=== PATIENT | female | born 1955 | race Caucasian/White ===

== ENCOUNTER 2017-08-25 18:45 | Emergency (ER) | payer BC, OTHER ==
[2017-08-25 19:03] VITALS: BP 136/75
[2017-08-25 20:09] LABS: CHLORIDE,CL 108 mmol/L (98-107); SODIUM,NA 144 mmol/L (136-145)
--- NOTE | 2017-08-25 21:54 | EDM.PDOC ---
ED HPI GENERAL MEDICAL PROBLEM - General Chief Complaint: HOME HEALTH LVN Problem Stated Complaint: ER Time Seen by Provider: 08/25/17 18:55 Source of Information: Reports: Patient, RN, RN Notes Reviewed History Limitations: Reports: No Limitations - History of Present Illness INITIAL COMMENTS - FREE TEXT/NARRATIVE: Patient presents to the ED at [facility] for vaginal bleeding that started earlier this morning. Patient denies any risk for STD. No UTI symptoms. Patient states that she has felt cold, weak, lightheaded. The patient states that movement makes her pain worse. The patient states that movement also increases the vaginal bleeding. The patient states that the blood is very bright and clotty. The patient denies any recent catheter use. The patient states that she has not had intercourse in over 17 years. The patient states that she started having vaginal bleeding after intercourse this morning. The patient states that the intercourse is very painful. Onset: Today, Sudden Onset Date: 08/25/17 Duration: Constant - Related Data Allergies Allergy/AdvReac Type Severity Reaction Status Date / Time Penicillins Allergy Cannot Verified 08/25/17 18:53 Remember Home Meds: Home Meds ALPRAZolam [Xanax] 2.5 mg PO BID PRN 06/18/14 [History] Ascorbic Acid [C-1000] 1 tab PO DAILY 06/18/14 [History] Calcium Carbonate [Calcium] 600 mg PO BID 06/18/14 [History] Citalopram Hydrobromide [Celexa] 10 mg PO DAILY 06/18/14 [History] Folic Acid 0.4 mg PO DAILY 06/18/14 [History] Levothyroxine 112 mcg PO DAILY 06/18/14 [History] Multivitamin [Multi Vitamin Daily] 1 tab PO DAILY 06/18/14 [History] Naproxen Sodium [Aleve] 1 cap PO DAILY PRN 06/18/14 [History] Vitamin B Complex 1 cap PO DAILY 06/18/14 [History] Loratadine [Claritin] 10 mg PO DAILY 11/08/14 [History] Past Medical History Psychiatric History: Reports: Anxiety Endocrine/Metabolic History: Reports: Hypothyroidism Social & Family History - Tobacco Use Smoking Status *Q: Unknown Ever Smoked Years of Tobacco use: 40 Used Tobacco, but Quit: Yes Second Hand Smoke Exposure: Yes - Alcohol Use Days Per Week of Alcohol Use: 7 Number of Drinks Per Day: 6 Total Drinks Per Week: 42 - Recreational Drug Use Recreational Drug Use: No Drug Use in Last 12 Months: No ED ROS GENERAL - Review of Systems Review Of Systems: See Below Constitutional: Reports: Chills, Weakness. Denies: Fever Respiratory: Denies: Shortness of Breath, Cough Cardiovascular: Reports: Lightheadedness. Denies: Chest Pain, Palpitations GI/Abdominal: Denies: Abdominal Pain, Nausea, Vomiting : Reports: Hematuria, Pain Skin: Reports: No Symptoms Neurological: Reports: No Symptoms ED EXAM, RENAL/ - Physical Exam Exam: See Below Exam Limited By: No Limitations General Appearance: Alert, No Apparent Distress Respiratory/Chest: No Respiratory Distress, Lungs Clear, Normal Breath Sounds Cardiovascular: Normal Peripheral Pulses, Regular Rate, Rhythm (Female) Exam: Vaginal Bleeding Neurological: Alert, Oriented Skin Exam: Warm, Dry, Intact, Normal Color, No Rash ED PROCEDURES - Additional/Other Procedure(s) Procedure(s) (Free Text): Vaginal exam completed. The vaginal canal was extensively evacuated for significant blood clotting. The patient has a vaginal tear from the mid vaginal canal extending all the way to the cervix. This area is actively bleeding. Tamponade was tried with 4 x 4's for several minutes without any relief of the bleeding. Patient tolerated procedure well and no complications. Course - Vital Signs Last Recorded V/S: Last Vital Signs Temp 36.6 C 08/25/17 18:45 Pulse 100 08/25/17 18:45 Resp 16 08/25/17 18:45 BP 136/75 08/25/17 18:45 Pulse Ox 92 L 08/25/17 18:45 - Orders/Labs/Meds Labs: Laboratory Tests 08/25/17 08/25/17 08/25/17 Range/Units 19:40 19:40 21:39 WBC 10.8 H (4.0-10.0) x10^3/uL RBC 3.60 L (4.00-5.50) x10^6/uL Hgb 12.3 (12.0-16.0) g/dL Hct 36.9 (33.0-47.0) % MCV 102.5 H D (78.0-93.0) fL MCH 34.2 H (26.0-32.0) pg MCHC 33.3 (32.0-36.0) g/dL RDW Coeff of [place] 12.5 (10.0-15.0) % Plt Count 294 (130-400) x10^3/uL Neut % (Auto) 77.5 (50.0-80.0) % Lymph % (Auto) 13.0 L (25.0-50.0) % [place] % (Auto) 8.4 (2.0-11.0) % Eos % (Auto) 0.7 (0.0-4.0) % Baso % (Auto) 0.4 (0.2-1.2) % Sodium 144 (136-145) mmol/L Potassium 3.6 (3.5-5.1) mmol/L Chloride 108 H (98-107) mmol/L Carbon Dioxide 24 (21-32) mmol/L BUN 10 (7-18) mg/dL Creatinine 0.6 (0.55-1.02) mg/dL Est Cr Clr Drug Dosing TNP Estimated GFR (MDRD) > 60 Glucose 92 (74-106) mg/dL Calcium 8.5 (8.5-10.1) mg/dL Urine Color Red H (YELLOW) Urine Appearance Other H (CLEAR) Urine pH 6.5 (5.0-8.0) Ur Specific [place] 1.020 Urine Protein >=300 H (NEGATIVE) mg/dL Urine Glucose (UA) Negative (NEGATIVE) mg/dL Urine Ketones Negative (NEGATIVE) mg/dL Urine Occult Blood Large H (NEGATIVE) Urine Nitrite Negative (NEGATIVE) Urine Bilirubin Negative (NEGATIVE) Urine Urobilinogen 0.2 (0.2) EU/dL Ur Leukocyte Esterase Small H (NEGATIVE) Urine RBC Packed (NOT SEEN) /HPF Urine WBC 10-20 H (NOT SEEN) /HPF Ur Squamous Epith Cells Few H (NEGATIVE) /HPF Urine Bacteria Moderate H (NEGATIVE) /HPF Urine Mucus Not seen (NEGATIVE) /LPF Departure - Departure Time of Disposition: 22:51 Disposition: DC/Tfer to Acute Hospital 02 Condition: Good Clinical Impression: Dyspareunia in female, Vaginal bleeding Tear of vaginal muscle Qualifiers: Encounter type: initial encounter Qualified Code(s): S39.013A - Strain of muscle, fascia and tendon of pelvis, initial encounter - Discharge Information Forms[facility] - ED Communication Date/Time Date: 08/25/17 Time Called: 21:45 - Discussed Case With (1) Discussed Case With (1): Outpatient Provider (Dr. Scott, HOME HEALTH LVN) Person/s Notified (1): Ha Scott - Conversation Summary Outpatient Provider Agreed to Follow-up on this Patient: Yes Patient Aware of Amendments fo Care Plan: Yes - Problem List Review Problem List Initiated/Reviewed/Updated: Yes - Assessment/Plan Plan: Case was discussed with Dr. Scott. Vaginal exam was discussed and patient will need to be sent to [facility] emergency department for the repair of the vaginal tear. Patient is aware and wishes to proceed. The patient will be sent via private vehicle. All questions answered.
== END 2017-08-25 23:27 | disposition short-term general hospital (02) ==
LOC: VM.ED 18:45
DX: S39.013A Strain of muscle, fascia and tendon of pelvis, initial encounter (principal); N94.10 Unspecified dyspareunia; E03.9 Hypothyroidism, unspecified; F41.9 Anxiety disorder, unspecified; Z79.899 Other long term (current) drug therapy; Z88.0 Allergy status to penicillin; X58.XXXA Exposure to other specified factors, initial encounter
CPT/HCPCS: 36415; 80048; 81001; 85025; 87210; 99285

== ENCOUNTER 2018-01-17 14:39 | Emergency (ER) | payer OTHER, BC ==
--- NOTE | 2018-01-17 14:52 | EDM.PDOC ---
ED HPI GENERAL MEDICAL PROBLEM - General Chief Complaint: Upper Extremity Injury/Pain Stated Complaint: fall at work, hurt left elbow Time Seen by Provider: 01/17/18 14:40 Source of Information: Reports: Patient History Limitations: Reports: No Limitations - History of Present Illness INITIAL COMMENTS - FREE TEXT/NARRATIVE: Patient works at [employer] and fell on a wet floor there. She states it was not marked wet. Hit her left elbow on the floor. Denies injury to any other sites. No LOC, did not hit her head. She does not take any anticoagulants. She has a large visible effusion to the left elbow. Full range of motion. Onset: Today, Sudden Location: Reports: Upper Extremity, Left Severity: Moderate Improves with: Reports: Cold Therapy Associated Symptoms: Reports: No Other Symptoms Left Elbow Pain Score (Numeric/FACES): 8 - Related Data Allergies Allergy/AdvReac Type Severity Reaction Status Date / Time Penicillins Allergy Cannot Verified 01/17/18 15:38 Remember Home Meds: Home Meds ALPRAZolam [Xanax] 2.5 mg PO BID PRN 06/18/14 [History] Ascorbic Acid [C-1000] 1 tab PO DAILY 06/18/14 [History] Calcium Carbonate [Calcium] 600 mg PO BID 06/18/14 [History] Citalopram Hydrobromide [Celexa] 10 mg PO DAILY 06/18/14 [History] Folic Acid 0.4 mg PO DAILY 06/18/14 [History] Levothyroxine 112 mcg PO DAILY 06/18/14 [History] Multivitamin [Multi Vitamin Daily] 1 tab PO DAILY 06/18/14 [History] Naproxen Sodium [Aleve] 1 cap PO DAILY PRN 06/18/14 [History] Vitamin B Complex 1 cap PO DAILY 06/18/14 [History] Loratadine [Claritin] 10 mg PO DAILY 11/08/14 [History] Past Medical History Psychiatric History: Reports: Anxiety Endocrine/Metabolic History: Reports: Hypothyroidism Review of Systems - Review of Systems Review Of Systems: See Below Constitutional: Reports: No Symptoms Eyes: Reports: No Symptoms Ears: Reports: No Symptoms Nose: Reports: No Symptoms Mouth/Throat: Reports: No Symptoms Respiratory: Reports: No Symptoms Cardiovascular: Reports: No Symptoms GI/Abdominal: Reports: No Symptoms Genitourinary: Reports: No Symptoms Musculoskeletal: Reports: Arm Pain (left elbow pain) Skin: Reports: No Symptoms Neurological: Reports: No Symptoms Psychiatric: Reports: No Symptoms ED EXAM, GENERAL - Physical Exam Exam: See Below Exam Limited By: No Limitations General Appearance: Alert, WD/WN, No Apparent Distress Eye Exam: Bilateral Eye: EOMI, PERRL Respiratory/Chest: No Respiratory Distress, Lungs Clear, Normal Breath Sounds, No Accessory Muscle Use, Chest Non-Tender Cardiovascular: Normal Peripheral Pulses, Regular Rate, Rhythm, No Edema, No Gallop, No JVD, No Murmur, No Rub Peripheral Pulses: 2+: Radial (L), Radial (R) GI/Abdominal: Normal Bowel Sounds, Soft Extremities: Normal Range of Motion (left elbow is painful and slow, but full ROM is intact), Normal Capillary Refill Neurological: Alert, Oriented, CN II-XII Intact, Normal Cognition, Normal Gait, Normal Reflexes, No Motor/Sensory Deficits Psychiatric: Normal Affect, Normal Mood Skin Exam: Ecchymosis (left elbow) Course - Vital Signs Last Recorded V/S: Last Vital Signs Temp 37.2 C 01/17/18 14:45 Pulse 81 01/17/18 14:45 Resp 16 01/17/18 14:45 BP 156/78 H 01/17/18 14:45 Pulse Ox 96 01/17/18 14:45 - Orders/Labs/Meds Orders: Active Orders 24 hr Category Date Time Status Branden Bandage [RC] ONETIME Care 01/17/18 15:02 Active Immobilizer [RC] ASDIRECTED Care 01/17/18 15:02 Active Elbow 2V Lt [CR] Stat Exams 01/17/18 14:40 Taken Meds: Medications Discontinued Medications Generic Name Dose Route Start Last Admin Trade Name Joselitoq PRN Reason Stop Dose Admin Tramadol HCl 50 mg 01/17/18 14:53 01/17/18 15:04 Ultram PO 01/17/18 14:54 50 mg ONETIME ONE Administration Departure - Departure Time of Disposition: 15:15 Disposition: Home, Self-Care 01 Condition: Good Clinical Impression: Fracture of olecranon process of left ulna Qualifiers: Encounter type: initial encounter Fracture type: closed Qualified Code(s): S52.022A - Displaced fracture of olecranon process without intraarticular extension of left ulna, initial encounter for closed fracture - Discharge Information Instructions: Olecranon Fracture Forms: ED Department Discharge Additional Instructions: Keep your elbow elevated, use ice and keep compressed for swelling. Take 50-100 mg of the tramadol I prescribed as needed for pain. Follow up with your primary and orthopedic for additional treatment and any surgery that may be needed. Please call us if your pain is not controlled or you have any problems with your blood flow and circulation to the hand. Please call with any questions or concerns. - Problem List & Annotations (1) Fracture of olecranon process of left ulna SNOMED Code(s): 883835001 Code(s): S52.022A - DISP FX OF OLECRAN PRO W/O INTARTIC EXTN LEFT ULNA, INIT Status: Acute Priority: Low Qualifiers: Encounter type: initial encounter Fracture type: closed Qualified Code(s) : S52.022A - Displaced fracture of olecranon process without intraarticular extension of left ulna, initial encounter for closed fracture - Problem List Review Problem List Initiated/Reviewed/Updated: Yes - My Orders Last 24 Hours: My Active Orders 01/17/18 14:40 Elbow 2V Lt [CR] Stat 01/17/18 15:02 Branden Bandage [RC] ONETIME Immobilizer [RC] ASDIRECTED - Assessment/Plan Last 24 Hours: My Active Orders 01/17/18 14:40 Elbow 2V Lt [CR] Stat 01/17/18 15:02 Branden Bandage [RC] ONETIME Immobilizer [RC] ASDIRECTED Assessment:: Fracture of left olecranon of ulna - non displaced Plan: Keep your elbow elevated, use ice and keep compressed for swelling. Take 50-100 mg of the tramadol I prescribed as needed for pain. Follow up with your primary and orthopedic for additional treatment and any surgery that may be needed. Please call us if your pain is not controlled or you have any problems with your blood flow and circulation to the hand. Please call with any questions or concerns.
[2018-01-17] MEDS: traMADol 50 MG Tab PO ONE (15:04)
[2018-01-17 15:38] VITALS: BP 156/78
== END 2018-01-17 15:15 | disposition home or self-care (01) ==
LOC: VM.ED 14:39
DX: S52.022A Displaced fracture of olecranon process without intraarticular extension of left ulna, initial encounter for closed fracture (principal); E03.9 Hypothyroidism, unspecified; Z88.0 Allergy status to penicillin; Z79.899 Other long term (current) drug therapy; W19.XXXA Unspecified fall, initial encounter
CPT/HCPCS: 73070; 99283; A9270

== ENCOUNTER 2018-09-14 16:31 | Emergency (ER) | payer BC, OTHER ==
[2018-09-14 16:40] VITALS: BP 108/57
--- NOTE | 2018-09-14 16:43 | EDM.PDOC ---
ED HPI GENERAL MEDICAL PROBLEM - General Chief Complaint: Upper Extremity Injury/Pain Time Seen by Provider: 09/14/18 16:36 Source of Information: Reports: Patient, Family - History of Present Illness INITIAL COMMENTS - FREE TEXT/NARRATIVE: I did talk to Dr. Wheeler about 10 after 5. The patient has been nothing by mouth since 3:00. We were able to do 2 view x-rays. Because the nothing by mouth status has been too soon surgery cannot happen tonight and the surgeon is booked up for the next couple days but he will inquire and get one of his partners either Dr. Galeano or Dr. Jordan to do the surgery. The patient was given a immobilizer and she declined any pain medications. She will be sleeping in a recliner. She will try ice and Aleve and she will not move her arm. Duration: Getting Worse Quality: Reports: Sharp Improves with: Reports: None Worsens with: Reports: Movement Context: Reports: Trauma Associated Symptoms: Reports: No Other Symptoms Right Shoulder Pain Score (Numeric/FACES): 10 - Related Data Allergies Allergy/AdvReac Type Severity Reaction Status Date / Time Penicillins Allergy Cannot Verified 01/17/18 15:38 Remember Home Meds: Home Meds ALPRAZolam [Xanax] 2.5 mg PO BID PRN 06/18/14 [History] Ascorbic Acid [C-1000] 1 tab PO DAILY 06/18/14 [History] Calcium Carbonate [Calcium] 600 mg PO BID 06/18/14 [History] Citalopram Hydrobromide [Celexa] 10 mg PO DAILY 06/18/14 [History] Folic Acid 0.4 mg PO DAILY 06/18/14 [History] Levothyroxine 112 mcg PO DAILY 06/18/14 [History] Multivitamin [Multi Vitamin Daily] 1 tab PO DAILY 06/18/14 [History] Naproxen Sodium [Aleve] 1 cap PO DAILY PRN 06/18/14 [History] Vitamin B Complex 1 cap PO DAILY 06/18/14 [History] Loratadine [Claritin] 10 mg PO DAILY 11/08/14 [History] Past Medical History Psychiatric History: Reports: Anxiety Endocrine/Metabolic History: Reports: Hypothyroidism Social & Family History - Tobacco Use Smoking Status *Q: Current Every Day Smoker Review of Systems - Review of Systems Review Of Systems: ROS reveals no pertinent complaints other than HPI. ED EXAM, GENERAL - Physical Exam Exam: See Below Exam Limited By: No Limitations General Appearance: Alert Respiratory/Chest: No Respiratory Distress, Lungs Clear, Normal Breath Sounds, No Accessory Muscle Use, Chest Non-Tender Cardiovascular: Normal Peripheral Pulses, Regular Rate, Rhythm, No Edema, No Gallop, No JVD, No Murmur, No Rub Extremities: Other (She does have a mass defect. This is consistent with a fracture. Neurovascularly she is intact distally. Good capillary refill. Range of motion is not tested. She is unable to move her arm without a great deal discomfort and pain. She is holding her arm to her side.) Course - Vital Signs Last Recorded V/S: Last Vital Signs Temp 36.3 C 09/14/18 16:35 Pulse 72 09/14/18 16:35 Resp 20 09/14/18 16:35 BP 108/57 L 09/14/18 16:35 Pulse Ox 93 L 09/14/18 16:35 Departure - Departure Time of Disposition: 17:25 Disposition: Home, Self-Care 01 Condition: Fair Clinical Impression: Humeral surgical neck fracture Qualifiers: Encounter type: initial encounter Fracture type: closed Fracture morphology: unspecified fracture morphology Fracture alignment: displaced Laterality: right Qualified Code(s): S42.211A - Unspecified displaced fracture of surgical neck of right humerus, initial encounter for closed fracture - Discharge Information *PRESCRIPTION DRUG MONITORING PROGRAM REVIEWED*: Not Applicable *COPY OF PRESCRIPTION DRUG MONITORING REPORT IN PATIENT ANNA: Not Applicable Instructions: Radial Head Fracture, [id number] Referrals: Jenni Santiago MD [Primary Care Provider] - Forms: ED Department Discharge Additional Instructions: Dr. Galeano or Dr. Jordan may be doing surgery for you either Saturday or Saturday. You may have to sleep in a recliner. Ice may help. Immobilizer placed. They will be calling you for your surgical time. Do not eat breakfast tomorrow until you hear from them.
--- NOTE | 2018-09-14 17:19 | CR ---
[id number] RAD/RAD Shoulder Right 2V Min EXAM: RAD Shoulder Right 2V Min CLINICAL DATA: TRAUMA COMPARISON: NO PREVIOUS SIMILAR EXAM IS AVAILABLE. FINDINGS: A complex proximal right humeral neck fracture is seen with anterior displacement of the distal fracture fragment, overriding of fracture fragments, evidence of comminution, and question of an underlying lytic process. There are degenerative changes of the right acromioclavicular joint.. IMPRESSION: COMPLEX DISPLACED OVERRIDING RIGHT HUMERAL NECK FRACTURE. QUESTION OF UNDERLYING LYTIC PROCESS. Sajan Almanzar MD 09/14/18 [id number] Thank you for allowing us to participate in the care of your patient.
== END 2018-09-14 17:40 | disposition home or self-care (01) ==
LOC: VM.ED 16:31
DX: S42.211A Unspecified displaced fracture of surgical neck of right humerus, initial encounter for closed fracture (principal); Z88.0 Allergy status to penicillin; F17.210 Nicotine dependence, cigarettes, uncomplicated; F41.9 Anxiety disorder, unspecified; W00.0XXA Fall on same level due to ice and snow, initial encounter
CPT/HCPCS: 73030-RT; 99283

== ENCOUNTER 2021-07-26 15:33 | Inpatient (IN) | payer MEDICARE, OTHER ==
[2021-07-26] MEDS ORDERED: Sodium Chloride 0.9% 10 ML Syringe FLUSH PRN (15:54)
[2021-07-26] MEDS ORDERED: Ondansetron 4 MG/2 ML SDV IVPUSH ONE (15:56)
[2021-07-26] MEDS ORDERED: Sodium Chloride 0.9% 1,000 ML IV ONE (15:56)
[2021-07-26] MEDS ORDERED: Pantoprazole 40 MG Vial IVPUSH ONE (15:56)
--- NOTE | 2021-07-26 16:16 | EDM.PDOC ---
ED HPI GENERAL MEDICAL PROBLEM - General Chief Complaint: Gastrointestinal Problem Stated Complaint: COVID SYMPTOMS Time Seen by Provider: 07/26/21 15:54 Source of Information: Reports: Patient History Limitations: Reports: No Limitations - History of Present Illness INITIAL COMMENTS - FREE TEXT/NARRATIVE: Patient presents to the Ed for cough, body aches, headache, loss of appetite for the last 4 days. She has had her covid booster in [facility]. SHe is a regular drinker of a large amount of alcohol daily but has not since three days ago. She is feeling lightheaded, dizzy, passing out for several days and since yesterday has had black tar like stools. epigastric pain. In may was taking a large amount of NSAIDS, but stopped doing that. She is a smoker Onset Date: 07/22/21 Duration: Getting Worse - Related Data Allergies Allergy/AdvReac Type Severity Reaction Status Date / Time Penicillins Allergy Cannot Verified 07/26/21 16:14 Remember Home Meds: Home Meds ALPRAZolam [Xanax] 2.5 mg PO BID PRN 06/18/14 [History] Ascorbic Acid [C-1000] 1 tab PO DAILY 06/18/14 [History] Calcium Carbonate [Calcium] 600 mg PO BID 06/18/14 [History] Citalopram Hydrobromide [Celexa] 10 mg PO DAILY 06/18/14 [History] Folic Acid 0.4 mg PO DAILY 06/18/14 [History] Levothyroxine 112 mcg PO DAILY 06/18/14 [History] Multivitamin [Multi Vitamin Daily] 1 tab PO DAILY 06/18/14 [History] Naproxen Sodium [Aleve] 1 cap PO DAILY PRN 06/18/14 [History] Vitamin B Complex 1 cap PO DAILY 06/18/14 [History] Loratadine [Claritin] 10 mg PO DAILY 11/08/14 [History] Past Medical History Psychiatric History: Reports: Anxiety Endocrine/Metabolic History: Reports: Hypothyroidism Social & Family History - Family History Family Medical History: No Pertinent Family History - Tobacco Use Tobacco Use Status *Q: Current Every Day Tobacco User - Alcohol Use Alcohol Use History: Yes Alcohol Use Frequency: Daily ED ROS GENERAL - Review of Systems Review Of Systems: See Below Constitutional: Reports: Malaise, Weakness, Fatigue, Decreased Appetite HEENT: Reports: Rhinitis. Denies: Sinus Problem, Throat Pain, Throat Swelling Respiratory: Reports: Shortness of Breath, Cough Cardiovascular: Reports: Dyspnea on Exertion. Denies: Chest Pain, Blood Pressure Problem Endocrine: Reports: Fatigue GI/Abdominal: Reports: Anorexia, Black Stool, Diarrhea, Decreased Appetite, Nausea Musculoskeletal: Reports: Muscle Pain Skin: Reports: No Symptoms Neurological: Reports: Dizziness, Headache, Numbness, Syncope (or near syncope) ED EXAM, GENERAL - Physical Exam Exam: See Below Exam Limited By: No Limitations General Appearance: Alert, Cachetic, Other (ill appearing, pale) Eye Exam: Bilateral Eye: EOMI, PERRL, Other (pale conjunctiva) Ears: Normal External Exam, Normal Canal, Hearing Grossly Normal Nose: Normal Inspection, Normal Mucosa, No Blood Throat/Mouth: Normal Inspection, Normal Lips, Other (moderate dry mucous mem branes) Neck: Normal Inspection Respiratory/Chest: No Respiratory Distress, Decreased Breath Sounds, Crackles (bases) Cardiovascular: Regular Rate, Rhythm, Tachycardia GI/Abdominal: Tender (mild epigastric area), Abnormal Bowel Sounds (decreased) Extremities: Normal Inspection, Normal Range of Motion, Non-Tender Neurological: Alert, Oriented #1 Interpretation EKG Date: 07/26/21 Time: 16:26 Rhythm: NSR Rate (Beats/Min): 92 P-Wave: Present ST-T: Other QT: Prolonged (borderline) Course - Vital Signs Last Recorded V/S: Last Vital Signs Temp 36.7 C 07/26/21 16:10 Pulse 101 H 07/26/21 16:10 Resp 18 07/26/21 16:10 BP 103/45 L 07/26/21 16:10 Pulse Ox 2 L 07/26/21 16:20 - Orders/Labs/Meds Orders: Active Orders 24 hr Category Date Time Status Oxygen Therapy [RC] ASDIRECTED Care 07/26/21 16:20 Active BLOOD SMEARS TO PATHOLOGIST [REF] Stat Lab 07/26/21 16:22 Received Oseltamivir [Tamiflu] Med 07/26/21 20:00 Active 75 mg PO BID Sodium Chloride 0.9% [Saline Flush] Med 07/26/21 15:54 Active 10 ml FLUSH ASDIRECTED PRN Peripheral IV Insertion Adult [OM.PC] Routine Oth 07/26/21 15:54 Ordered Medication Orders Oseltamivir Phosphate (Oseltamivir 75 Mg Cap) 75 mg PO BID [facility] Last Admin: 07/26/21 18:32 Dose: 75 mg Documented by: SALAZAR Sodium Chloride (Sodium Chloride 0.9% 10 Ml Syringe) 10 ml FLUSH ASDIRECTED PRN PRN Reason: Keep Vein Open Labs: Laboratory Tests 07/26/21 07/26/21 07/26/21 Range/Units 16:00 16:22 16:22 WBC 8.2 (4.0-10.0) x10^3/uL RBC 3.14 L (4.00-5.50) x10^6/uL Hgb 10.9 L (12.0-16.0) g/dL Hct 31.4 L (33.0-47.0) % MCV 100.0 H (78.0-93.0) fL MCH 34.7 H (26.0-32.0) pg MCHC 34.7 (32.0-36.0) g/dL RDW Coeff of Raafel 12.1 (10.0-15.0) % Plt Count 202 (130-400) x10^3/uL Add Manual Diff Yes Neutrophils % (Manual) 65 (50-80) % Band Neutrophils % 20 H (0-6) % Lymphocytes % (Manual) 3 L (25-50) % Reactive Lymphs % 6 H (0) % Monocytes % (Manual) 1 L (2-11) % Metamyelocytes % 5 H (0) % Immature Gran # 0.41 H (0.00-0.07) X10^3/Ul Absolute Neutrophils 7.0 (1.8-7.7) x10^3/uL Lymphocytes # (Manual) 0.7 L (1.0-4.8) x10^3/uL Monocytes # (Manual) 0.1 (0.0-0.8) x10^3/uL Vacuolated Neuts 2+ moderate Toxic Granulation 2+ moderate H Platelet Estimate Adequate Giant Platelets Rare H Polychromasia Rare Macrocytosis 2+ moderate H D-Dimer, Quantitative (<=0.58) mg/LFEU Sodium 133 L (136-145) mmol/L Potassium 3.9 (3.5-5.1) mmol/L Chloride 98 (98-107) mmol/L Carbon Dioxide 24 (21-32) mmol/L Anion Gap 14.9 (5-15) mmol/L BUN 31 H (7-18) mg/dL Creatinine 0.9 (0.55-1.02) mg/dL Est Cr Clr Drug Dosing TNP Estimated GFR (MDRD) > 60 Glucose 105 H (70-99) mg/dL Lactic Acid (0.4-2.0) mmol/L Calcium 8.6 (8.5-10.1) mg/dL Corrected Calcium 9.3 (8.5-10.1) mg/dL Total Bilirubin 0.5 (0.2-1.0) mg/dL AST 23 (15-37) U/L ALT 18 (14-59) U/L Alkaline Phosphatase 67 (46-116) U/L Ammonia (19-54) ug/dL Troponin I High Sens 9 (<=51) ng/L C-Reactive Protein 25.2 H (<=0.9) mg/dL Total Protein 6.9 (6.4-8.2) g/dL Albumin 3.1 L (3.4-5.0) g/dL Globulin 3.8 Albumin/Globulin Ratio 0.82 Lipase 37 L (73-393) U/L Ethyl Alcohol < 3 (0-3) mg/dL Influenza Type A RNA Positive H (NEGATIVE) RSV RNA (INAAT) Negative (NEGATIVE) Influenza Type B RNA Negative (NEGATIVE) SARS-CoV-2 RNA (SHELBY) Negative (NEGATIVE) 07/26/21 07/26/21 07/26/21 Range/Units 16:22 16:22 16:22 WBC (4.0-10.0) x10^3/uL RBC (4.00-5.50) x10^6/uL Hgb (12.0-16.0) g/dL Hct (33.0-47.0) % MCV (78.0-93.0) fL MCH (26.0-32.0) pg MCHC (32.0-36.0) g/dL RDW Coeff of Rafael (10.0-15.0) % Plt Count (130-400) x10^3/uL Add Manual Diff Neutrophils % (Manual) (50-80) % Band Neutrophils % (0-6) % Lymphocytes % (Manual) (25-50) % Reactive Lymphs % (0) % Monocytes % (Manual) (2-11) % Metamyelocytes % (0) % Immature Gran # (0.00-0.07) X10^3/Ul Absolute Neutrophils (1.8-7.7) x10^3/uL Lymphocytes # (Manual) (1.0-4.8) x10^3/uL Monocytes # (Manual) (0.0-0.8) x10^3/uL Vacuolated Neuts Toxic Granulation Platelet Estimate Giant Platelets Polychromasia Macrocytosis D-Dimer, Quantitative 0.75 H (<=0.58) mg/LFEU Sodium (136-145) mmol/L Potassium (3.5-5.1) mmol/L Chloride (98-107) mmol/L Carbon Dioxide (21-32) mmol/L Anion Gap (5-15) mmol/L BUN (7-18) mg/dL Creatinine (0.55-1.02) mg/dL Est Cr Clr Drug Dosing Estimated GFR (MDRD) Glucose (70-99) mg/dL Lactic Acid 1.5 (0.4-2.0) mmol/L Calcium (8.5-10.1) mg/dL Corrected Calcium (8.5-10.1) mg/dL Total Bilirubin (0.2-1.0) mg/dL AST (15-37) U/L ALT (14-59) U/L Alkaline Phosphatase (46-116) U/L Ammonia < 17 L (19-54) ug/dL Troponin I High Sens (<=51) ng/L C-Reactive Protein (<=0.9) mg/dL Total Protein (6.4-8.2) g/dL Albumin (3.4-5.0) g/dL Globulin Albumin/Globulin Ratio Lipase (73-393) U/L Ethyl Alcohol (0-3) mg/dL Influenza Type A RNA (NEGATIVE) RSV RNA (INAAT) (NEGATIVE) Influenza Type B RNA (NEGATIVE) SARS-CoV-2 RNA (SHELBY) (NEGATIVE) Meds: Medications Generic Name Dose Route Start Last Admin Trade Name Freq PRN Reason Stop Dose Admin Oseltamivir Phosphate 75 mg 07/26/21 20:00 07/26/21 18:32 Oseltamivir 75 Mg Cap PO 75 mg BID VALDO Administration Sodium Chloride 10 ml 07/26/21 15:54 Sodium Chloride 0.9% 10 Ml Syringe FLUSH ASDIRECTED PRN Keep Vein Open Discontinued Medications Generic Name Dose Route Start Last Admin Trade Name Freq PRN Reason Stop Dose Admin Sodium Chloride 1,000 mls @ 999 mls/hr 07/26/21 15:56 07/26/21 16:28 Normal Saline IV 07/26/21 16:56 999 mls/hr ONETIME ONE Administration Iopamidol 50 ml 07/26/21 18:00 07/26/21 18:00 Iopamidol 755 Mg/Ml 100 Ml Bottle IVPUSH 07/26/21 18:01 50 ml ONETIME ONE Administration Ondansetron HCl 4 mg 07/26/21 15:56 07/26/21 16:30 Ondansetron 4 Mg/2 Ml Sdv IVPUSH 07/26/21 15:57 4 mg ONETIME ONE Administration Pantoprazole Sodium 80 mg 07/26/21 15:56 07/26/21 16:32 Pantoprazole 40 Mg Vial IVPUSH 07/26/21 15:57 80 mg ONETIME ONE Administration - Radiology Interpretation Free Text/Narrative:: chest x-rayunilateral distribultioin and appearance most consistent with pneumonia. this is over the left mid and lower lung - Re-Assessments/Exams Free Text/Narrative Re-Assessment/Exam: 07/26/21 16:19 Patient is hypoxic., aleena check for covid/infleunza/rsv. Place on 2.5 lpm nasal canula. type and scree. start IV and give fluids, protonix 80 mg ivp and zofran 07/26/21 18:26 Patient smokes 1 pack per day. drinks daily. advised needed to stay due to hypoxia. Has influenza A. hemoglobin stable. Will need upper and lower GI scope. no stools in the ED. tamiflu given po. 07/26/21 19:12 Dr. Lockwood to Admit for influenza A and acuter respiratory failure. Departure - Departure Time of Disposition: 19:11 Disposition: Admitted As Inpatient 64 Condition: Good Clinical Impression: Influenza A, Acute respiratory failure with hypoxia, Anemia - Discharge Information Referrals: Jenni Santiago MD [Primary Care Provider] - Forms: ED Department Discharge Sepsis Event Note (ED) - Focused Exam Vital Signs: Vital Signs Temp Pulse Resp BP Pulse Ox Pulse Ox 07/26/21 16:20 2 L 07/26/21 16:10 36.7 C 101 H 18 103/45 L 85 L - My Orders Last 24 Hours: My Active Orders 07/26/21 15:54 Sodium Chloride 0.9% [Saline Flush] 10 ml FLUSH ASDIRECTED PRN Peripheral IV Insertion Adult [OM.PC] Routine 07/26/21 16:20 Oxygen Therapy [RC] ASDIRECTED 07/26/21 16:22 BLOOD SMEARS TO PATHOLOGIST [REF] Stat 07/26/21 20:00 Oseltamivir [Tamiflu] 75 mg PO BID - Assessment/Plan Last 24 Hours: My Active Orders 07/26/21 15:54 Sodium Chloride 0.9% [Saline Flush] 10 ml FLUSH ASDIRECTED PRN Peripheral IV Insertion Adult [OM.PC] Routine 07/26/21 16:20 Oxygen Therapy [RC] ASDIRECTED 07/26/21 16:22 BLOOD SMEARS TO PATHOLOGIST [REF] Stat 07/26/21 20:00 Oseltamivir [Tamiflu] 75 mg PO BID
--- NOTE | 2021-07-26 16:52 | CR ---
[id number] RAD/RAD Chest PA And Lateral EXAM: RAD Chest PA And Lateral INDICATION: SHORTNESS OF BREATH. COMPARISON: None. DISCUSSION/IMPRESSION: Cardiomediastinal silhouette is normal in size and contour. Patchy parenchymal opacification projects over the left mid and lower lung. Right lung is clear. Unilateral distribution and appearance of findings is most consistent with pneumonia. No pleural effusion or pneumothorax. Joni Coronado MD 07/26/21 [id number] Thank you for allowing us to participate in the care of your patient.
[2021-07-26 16:53] LABS: CHLORIDE,CL 98 mmol/L (98-107); SODIUM,NA 133 mmol/L (136-145)
[2021-07-26 16:57] LABS: ANION GAP 14.9 mmol/L (5-15)
[2021-07-26 16:58] LABS: CORONAVIRUS COVID-19 NAA NEGATIVE (NEGATIVE); RESPIRATORY SYNCYTIAL VIR NAA NEGATIVE (NEGATIVE)
[2021-07-26] MEDS ORDERED: Iopamidol 755 Mg/ML 100 ML Bottle IVPUSH ONE (18:00)
[2021-07-26] MEDS: Oseltamivir 75 MG Cap PO SCH (18:32)
--- NOTE | 2021-07-26 18:51 | CT ---
[id number] CT/CTA Chest EXAM: CTA Chest CLINICAL DATA: SHORTNESS OF BREATH. COMPARISON STUDY: Radiograph from today. FINDINGS: Lungs: Scattered patchy areas of nonmass-like and geographic appearing parenchymal opacification throughout both lungs. Findings are more prominent on the left. Findings are superimposed on changes of parenchymal emphysema and chronic bronchitis, consistent with changes commonly seen in chronic obstructive pulmonary disease. No pleural effusion or pneumothorax. Mediastinum: No mediastinal or hilar lymphadenopathy. Heart and great vessels: Heart is normal in size. No pericardial effusion. Thoracic aorta is normal in caliber. Pulmonary arteries are normal in caliber. No evidence of embolic material in the main pulmonary arteries or lobar branches. Some of the larger segmental branches are also clear. However and smaller segmental and subsegmental branches are not adequately opacified to assess for emboli. Bones: No acute fracture or compression deformity. Spondylosis. Upper abdomen: Unremarkable. IMPRESSION: Abnormal patchy areas of geographic and somewhat nodular appearing parenchymal opacification in both lungs. Findings are more prominent in the left lung. Appearance and distribution of findings most consistent with pneumonia, including COVID pneumonia. Negative for pulmonary embolus, described above. Joni Coronado MD 07/26/21 [id number] Thank you for allowing us to participate in the care of your patient.
[2021-07-26] MEDS ORDERED: Acetaminophen 325 MG Tab PO PRN (19:53)
[2021-07-26] MEDS ORDERED: Albuterol/Ipratropium 3.0-0.5 MG/3 ML Neb Soln NEB PRN (19:55)
--- NOTE | 2021-07-26 21:39 | PCM.HP.2 ---
H&P History of Present Illness - General Date of Service: 07/26/21 Admit Problem/Dx: Admission Diagnosis/Problem Admission Diagnosis/Problem Acute respiratory failure with hypoxemia Source of Information: Patient History Limitations: Reports: No Limitations - History of Present Illness Initial Comments - Free Text/Narative: Ms. Sewell is a 65 yo female with PMH of COPD, HTN, hypothyroidism, tobacco use disorder, alcohol use disorder, anxiety, and RLS who presented to the ER for evaluation of progressively worsening generalized weakness over the past 5 days. She stated that every time she would get up and move around she felt lightheaded. Today she fell multiple times. When a friend had not heard back from her, she came to check on her and then subsequently brought her to the ER. She has also had a cough that is nonproductive and a mild increase in shortness of breath. She has had headaches, fevers and chills, and decreased appetite. She has been having diarrhea and her stools have now been black over the past 24 hours. No abdominal pain. Last drink was 4 days ago. She has not really been doing any home cares. - Related Data Allergies/Adverse Reactions: Allergies Allergy/AdvReac Type Severity Reaction Status Date / Time Penicillins Allergy Cannot Verified 07/26/21 16:14 Remember Home Medications: Home Meds ALPRAZolam [Xanax] 2.5 mg PO BID PRN 06/18/14 [History] Ascorbic Acid [C-1000] 1 tab PO DAILY 06/18/14 [History] Calcium Carbonate [Calcium] 600 mg PO BID 06/18/14 [History] Citalopram Hydrobromide [Celexa] 10 mg PO DAILY 06/18/14 [History] Folic Acid 0.4 mg PO DAILY 06/18/14 [History] Levothyroxine 112 mcg PO DAILY 06/18/14 [History] Multivitamin [Multi Vitamin Daily] 1 tab PO DAILY 06/18/14 [History] Naproxen Sodium [Aleve] 1 cap PO DAILY PRN 06/18/14 [History] Vitamin B Complex 1 cap PO DAILY 06/18/14 [History] Loratadine [Claritin] 10 mg PO DAILY 11/08/14 [History] Past Medical History HEENT History: Reports: None Cardiovascular History: Reports: High Cholesterol, Hypertension Respiratory History: Reports: COPD Gastrointestinal History: Reports: GERD Genitourinary History: Reports: None Musculoskeletal History: Reports: None Neurological History: Reports: None Psychiatric History: Reports: Anxiety Endocrine/Metabolic History: Reports: Hypothyroidism Hematologic History: Reports: None Immunologic History: Reports: None Oncologic (Cancer) History: Reports: None Dermatologic History: Reports: None - Infectious Disease History Infectious Disease History: Reports: Influenza - Past Surgical History Female Surgical History: Reports: Section, D&C, Tubal Ligation Musculoskeletal Surgical History: Reports: Arthroscopic Procedure, ORIF Social & Family History - Family History Neurological: Reports: Alzheimers Disease - Tobacco Use Tobacco Use Status *Q: Current Every Day Tobacco User Years of Tobacco use: 40 Packs/Tins Daily: 1 - Alcohol Use Alcohol Use History: Yes Days Per Week of Alcohol Use: 7 Number of Drinks Per Day: 4 Total Drinks Per Week: 28 - Recreational Drug Use Recreational Drug Use: No - Living Situation & Occupation Occupation: Employed H&P Review of Systems - Review of Systems: Review Of Systems: See Below General: Reports: Fever, Chills, Malaise HEENT: Reports: Headaches Pulmonary: Reports: Shortness of Breath, Cough Cardiovascular: Reports: No Symptoms Gastrointestinal: Reports: Black Stool, Diarrhea. Denies: Abdominal Pain, Nausea, Vomiting Genitourinary: Reports: No Symptoms Musculoskeletal: Reports: No Symptoms Skin: Reports: No Symptoms Psychiatric: Reports: No Symptoms Neurological: Reports: No Symptoms Hematologic/Lymphatic: Reports: No Symptoms Exam - Exam Exam: See Below - Vital Signs Vital Signs: Last Vital Signs Temp 36.6 C 07/26/21 20:27 Pulse 80 07/26/21 20:27 Resp 18 07/26/21 20:27 BP 104/38 L 07/26/21 20:27 Pulse Ox 95 07/26/21 20:27 - Exam General: Alert, Oriented HEENT: Conjunctiva Clear, Mucosa Moist & [place], Posterior Pharynx Clear, Pupils Equal, Pupils Reactive, TMs Clear Neck: Supple, Trachea Midline Lungs: Clear to Auscultation, Normal Respiratory Effort Cardiovascular: Regular Rate, Regular Rhythm, Normal S1, Normal S2 GI/Abdominal Exam: Normal Bowel Sounds, Soft, Non-Tender, No Organomegaly, No Distention, No Mass Extremities: Normal Inspection, Normal Range of Motion, Non-Tender, No Pedal Edema, Normal Capillary Refill Peripheral Pulses: 2+: Radial (L), Radial (R) Skin: Warm, Dry, Intact Neurological: Cranial Nerves Intact, Reflexes Equal Bilateral - Patient Data Lab Results Last 24 hrs: Laboratory Results - last 24 hr 07/26/21 07/26/21 07/26/21 Range/Units 16:00 16:22 16:22 WBC 8.2 (4.0-10.0) x10^3/uL RBC 3.14 L (4.00-5.50) x10^6/uL Hgb 10.9 L (12.0-16.0) g/dL Hct 31.4 L (33.0-47.0) % MCV 100.0 H (78.0-93.0) fL MCH 34.7 H (26.0-32.0) pg MCHC 34.7 (32.0-36.0) g/dL RDW Coeff of Rafael 12.1 (10.0-15.0) % Plt Count 202 (130-400) x10^3/uL Add Manual Diff Yes Neutrophils % (Manual) 65 (50-80) % Band Neutrophils % 20 H (0-6) % Lymphocytes % (Manual) 3 L (25-50) % Reactive Lymphs % 6 H (0) % Monocytes % (Manual) 1 L (2-11) % Metamyelocytes % 5 H (0) % Immature Gran # 0.41 H (0.00-0.07) X10^3/Ul Absolute Neutrophils 7.0 (1.8-7.7) x10^3/uL Lymphocytes # (Manual) 0.7 L (1.0-4.8) x10^3/uL Monocytes # (Manual) 0.1 (0.0-0.8) x10^3/uL Vacuolated Neuts 2+ moderate Toxic Granulation 2+ moderate H Platelet Estimate Adequate Giant Platelets Rare H Polychromasia Rare Macrocytosis 2+ moderate H D-Dimer, Quantitative (<=0.58) mg/LFEU Sodium 133 L (136-145) mmol/L Potassium 3.9 (3.5-5.1) mmol/L Chloride 98 (98-107) mmol/L Carbon Dioxide 24 (21-32) mmol/L Anion Gap 14.9 (5-15) mmol/L BUN 31 H (7-18) mg/dL Creatinine 0.9 (0.55-1.02) mg/dL Est Cr Clr Drug Dosing TNP Estimated GFR (MDRD) > 60 Glucose 105 H (70-99) mg/dL Lactic Acid (0.4-2.0) mmol/L Calcium 8.6 (8.5-10.1) mg/dL Corrected Calcium 9.3 (8.5-10.1) mg/dL Total Bilirubin 0.5 (0.2-1.0) mg/dL AST 23 (15-37) U/L ALT 18 (14-59) U/L Alkaline Phosphatase 67 (46-116) U/L Ammonia (19-54) ug/dL Troponin I High Sens 9 (<=51) ng/L C-Reactive Protein 25.2 H (<=0.9) mg/dL Total Protein 6.9 (6.4-8.2) g/dL Albumin 3.1 L (3.4-5.0) g/dL Globulin 3.8 Albumin/Globulin Ratio 0.82 Lipase 37 L (73-393) U/L Ethyl Alcohol < 3 (0-3) mg/dL Influenza Type A RNA Positive H (NEGATIVE) RSV RNA (INAAT) Negative (NEGATIVE) Influenza Type B RNA Negative (NEGATIVE) SARS-CoV-2 RNA (SHELBY) Negative (NEGATIVE) 07/26/21 07/26/21 07/26/21 Range/Units 16:22 16:22 16:22 WBC (4.0-10.0) x10^3/uL RBC (4.00-5.50) x10^6/uL Hgb (12.0-16.0) g/dL Hct (33.0-47.0) % MCV (78.0-93.0) fL MCH (26.0-32.0) pg MCHC (32.0-36.0) g/dL RDW Coeff of Rafael (10.0-15.0) % Plt Count (130-400) x10^3/uL Add Manual Diff Neutrophils % (Manual) (50-80) % Band Neutrophils % (0-6) % Lymphocytes % (Manual) (25-50) % Reactive Lymphs % (0) % Monocytes % (Manual) (2-11) % Metamyelocytes % (0) % Immature Gran # (0.00-0.07) X10^3/Ul Absolute Neutrophils (1.8-7.7) x10^3/uL Lymphocytes # (Manual) (1.0-4.8) x10^3/uL Monocytes # (Manual) (0.0-0.8) x10^3/uL Vacuolated Neuts Toxic Granulation Platelet Estimate Giant Platelets Polychromasia Macrocytosis D-Dimer, Quantitative 0.75 H (<=0.58) mg/LFEU Sodium (136-145) mmol/L Potassium (3.5-5.1) mmol/L Chloride (98-107) mmol/L Carbon Dioxide (21-32) mmol/L Anion Gap (5-15) mmol/L BUN (7-18) mg/dL Creatinine (0.55-1.02) mg/dL Est Cr Clr Drug Dosing Estimated GFR (MDRD) Glucose (70-99) mg/dL Lactic Acid 1.5 (0.4-2.0) mmol/L Calcium (8.5-10.1) mg/dL Corrected Calcium (8.5-10.1) mg/dL Total Bilirubin (0.2-1.0) mg/dL AST (15-37) U/L ALT (14-59) U/L Alkaline Phosphatase (46-116) U/L Ammonia < 17 L (19-54) ug/dL Troponin I High Sens (<=51) ng/L C-Reactive Protein (<=0.9) mg/dL Total Protein (6.4-8.2) g/dL Albumin (3.4-5.0) g/dL Globulin Albumin/Globulin Ratio Lipase (73-393) U/L Ethyl Alcohol (0-3) mg/dL Influenza Type A RNA (NEGATIVE) RSV RNA (INAAT) (NEGATIVE) Influenza Type B RNA (NEGATIVE) SARS-CoV-2 RNA (SHELBY) (NEGATIVE) Result Diagrams: 07/26/21 16:22 07/26/21 16:22 Sepsis Event Note - Focused Exam Vital Signs: Vital Signs Temp Pulse Resp BP Pulse Ox Pulse Ox 07/26/21 20:27 36.6 C 80 18 104/38 L 95 07/26/21 19:53 36.7 C 80 18 104/38 L 95 07/26/21 16:20 2 L 07/26/21 16:10 36.7 C 101 H 18 103/45 L 85 L *Q Meaningful Use (ADM) - VTE *Q VTE Anticoagulation Contraindications: Medical/Procedure Contrai - Problem List (1) Acute respiratory failure with hypoxia SNOMED Code(s): 53413340, 793670611 ICD Code: J96.01 - ACUTE RESPIRATORY FAILURE WITH HYPOXIA Status: Acute Current Visit: Yes (2) Influenza A SNOMED Code(s): 187013001 ICD Code: J10.1 - FLU DUE TO OTH IDENT INFLUENZA VIRUS W OTH RESP MANIFEST Status: Acute Current Visit: Yes (3) COPD (chronic obstructive pulmonary disease) SNOMED Code(s): 91801575 ICD Code: J44.9 - CHRONIC OBSTRUCTIVE PULMONARY DISEASE, UNSPECIFIED Status: Acute Current Visit: Yes Qualifiers: COPD type: COPD with acute exacerbation Qualified Code(s): J44.1 - Chronic obstructive pulmonary disease with (acute) exacerbation (4) Black tarry stools SNOMED Code(s): 916979915 ICD Code: K92.1 - MELENA Status: Acute Current Visit: Yes (5) Anemia SNOMED Code(s): 890919655 ICD Code: D64.9 - ANEMIA, UNSPECIFIED Status: Chronic Current Visit: Yes (6) Alcohol use disorder SNOMED Code(s): 5541398 ICD Code: UWS3445 - Status: Chronic Current Visit: Yes (7) Tobacco use disorder SNOMED Code(s): 616716437 ICD Code: F17.200 - NICOTINE DEPENDENCE, UNSPECIFIED, UNCOMPLICATED Status: Chronic Current Visit: Yes (8) Hypertension SNOMED Code(s): 34305372 ICD Code: I10 - ESSENTIAL (PRIMARY) HYPERTENSION Status: Chronic Current Visit: Yes Qualifiers: Hypertension type: primary hypertension Qualified Code(s): I10 - Essential (primary) hypertension (9) Hypothyroid SNOMED Code(s): 69968293 ICD Code: E03.9 - HYPOTHYROIDISM, UNSPECIFIED Status: Chronic Current Visit: Yes Problem List Initiated/Reviewed/Updated: Yes Orders Last 24hrs: Active Orders 24 hr Category Date Time Status Admission Status [Patient Status] [ADT] Routine ADT 07/26/21 19:13 Active Fecal Occult Bld Scn Imm [RC] ASDIRECTED Care 07/26/21 19:56 Active Notify Provider Vital Signs [RC] ASDIRECTED Care 07/26/21 19:53 Active Oxygen Therapy [RC] ASDIRECTED Care 07/26/21 16:20 Active Oxygen Therapy [RC] PRN Care 07/26/21 19:53 Active RT Aerosol Therapy [RC] ASDIRECTED Care 07/26/21 19:55 Active Up With Assistance [RC] ASDIRECTED Care 07/26/21 19:53 Active VTE/DVT Education [RC] PER UNIT ROUTINE Care 07/26/21 19:53 Active Vital Signs [RC] Q4H Care 07/26/21 19:53 Active Clear Liquid Diet [DIET] Diet 07/26/21 Dinner Active BASIC METABOLIC PANEL,BMP [CHEM] Routine Lab 07/27/21 05:11 Ordered BLOOD SMEARS TO PATHOLOGIST [REF] Stat Lab 07/26/21 16:22 Received CBC WITH AUTO DIFF [HEME] Routine Lab 07/27/21 05:11 Ordered Acetaminophen [TylenoL] Med 07/26/21 19:53 Active 650 mg PO Q4H PRN Albuterol/Ipratropium [DuoNeb 3.0-0.5 MG/3 ML] Med 07/26/21 19:55 Active 3 ml NEB Q4HRRT PRN Oseltamivir [Tamiflu] Med 07/26/21 20:00 Active 75 mg PO BID Pantoprazole [ProTONIX IV] Med 07/27/21 08:00 Active 40 mg IVPUSH Q12H Sodium Chloride 0.9% [Saline Flush] Med 07/26/21 15:54 Active 10 ml FLUSH ASDIRECTED PRN predniSONE Med 07/27/21 08:00 Active 40 mg PO WITHBREAKFAST Anticoagulation Contraindications VTE [AST] Click to Oth 07/26/21 19:55 Ordered Edit Peripheral IV Insertion Adult [OM.PC] Routine Oth 07/26/21 15:54 Ordered Resuscitation Status Routine Resus Stat 07/26/21 19:53 Ordered Medication Orders Acetaminophen (Acetaminophen 325 Mg Tab) 650 mg PO Q4H PRN PRN Reason: Pain (Mild 1-3)/fever Albuterol/Ipratropium (Albuterol/Ipratropium 3.0-0.5 Mg/3 Ml Neb Soln) 3 ml NEB Q4HRRT PRN PRN Reason: Other Oseltamivir Phosphate (Oseltamivir 75 Mg Cap) 75 mg PO BID VALDO Last Admin: 07/26/21 18:32 Dose: 75 mg Documented by: SALAZAR Pantoprazole Sodium (Pantoprazole 40 Mg Vial) 40 mg IVPUSH Q12H [facility] Prednisone (Prednisone 20 Mg Tab) 40 mg PO WITHBREAKFAST [facility] Sodium Chloride (Sodium Chloride 0.9% 10 Ml Syringe) 10 ml FLUSH ASDIRECTED PRN PRN Reason: Keep Vein Open Assessment/Plan Comment:: 65 yo female admitted with hypoxic respiratory failure secondary to influenza A. #1 Hypoxic respiratory failure #2 Influenza A #3 COPD exacerbation - O2 to keep sats 88-92%. Will wean as able. - Tamiflu. - Prednisone - DuoNebs PRN. - No role for antibiotics in light of no focal infiltrates or leukocytosis. - Continue breo. #4 Black tarry stools #5 Anemia - Check hemoglobin again in the am. Frequency from there depending on trend. - Protonix 40 mg BID. - Hemoccult ordered. #6 Alcohol use disorder - Last drink >72 hours ago; therefore, low risk for withdrawal. #7 Tobacco use disorder - Offer nicotine patch. #8 Hypertension #9 Hypothyroid #10 Anxiety - Continue home medications. Patient will be admitted to acute for diagnoses as above. Anticipate admission for 2-3 days. Code status is full - discussed on admission. Holding pharmacologic VTE prophylaxis in light of her presumed GI bleed. - Mortality Measure Prognosis:: Good
[2021-07-26] MEDS ORDERED: ALPRAZolam 0.5 MG Tab PO PRN (21:55)
[2021-07-27 06:54] LABS: CHLORIDE,CL 100 mmol/L (98-107); SODIUM,NA 133 mmol/L (136-145)
[2021-07-27 06:56] LABS: ANION GAP 11.7 mmol/L (5-15)
[2021-07-27] MEDS ORDERED: Enoxaparin 40 MG/0.4 ML Syringe SUBCUT SCH (08:00)
[2021-07-27] MEDS: Pantoprazole 40 MG Vial IVPUSH SCH ×2 (08:21→19:44)
[2021-07-27] MEDS: Citalopram 10 MG Tab PO SCH (08:21)
[2021-07-27] MEDS: Oseltamivir 75 MG Cap PO SCH ×2 (08:21→19:44)
[2021-07-27] MEDS: predniSONE 20 MG Tab PO SCH (08:21)
[2021-07-27] MEDS: Levothyroxine 112 MCG Tab PO SCH (08:21)
[2021-07-27] MEDS ORDERED: Acetaminophen/HYDROcodone 325-5 MG Tab PO PRN (08:36)
[2021-07-27] MEDS: Lactated Ringers 1,000 ML IV SCH (09:43)
--- NOTE | 2021-07-27 10:05 | PN ---
Progress Note for MATT MESSER Date: 07/27/2021 Room #: VM.215 SUBJECTIVE: Today is patient's second hospital day. She was admitted yesterday with influenza as well as hemoglobin, syncope, hypoxemia. She received IV hydration as well as Tamiflu started as well as oxygen and placed on DuoNebs. The patient is feeling better today. She has been noted to have pleuritic chest pain. She used to be taking Aleve, but this had been bothering her stomach and was most likely the source of her GI bleeding. She has never had a previous GI ulcer before. She is noted to be a smoker as well as consumes alcohol fairly regularly. The patient had received some IV Protonix initially as well as IV fluids. The patient is feeling a little bit stronger today. OBJECTIVE: Vital Signs: Patient's oxygen is dropped down to 87% on 3 L. Her blood pressure is 104/48, pulse is 104, temperature max was 38, now is down to 37.0. General: She appears weak. She has audible cough is noted. Heart: Regular rate and rhythm. Lungs: Have inspiratory crackles on left base. Abdomen: Soft. LABORATORY DATA: The patient did have a CT last evening to rule out PE, it was negative. It did show a left lower lobe infiltrate. The patient's lab today showed that her white blood cell count has dropped to 2.8, hemoglobin has just dropped to 9.9 from 10.9; however, in the clinic 2 weeks ago, it was 13. MCV is 100.7, platelets are 163 with 43 segs and 31 lymphs. Her sodium is 133, potassium is 3.7, creatinine 0.6. GFR greater than 60. On admit, her CRP was 25.2. Lipase was 37. Blood alcohol was negative. Her influenza was positive. She is negative for COVID, negative RSV. Influenza A positive. IMPRESSION: 1. Influenza A pneumonitis. 2. Respiratory failure secondary to that. 3. Suspect upper gastrointestinal bleed. 4. Anemia secondary to upper gastrointestinal bleed. 5. Chronic obstructive pulmonary disease. 6. Chronic anxiety disorder. 7. Hypothyroidism. PLAN: We will resume IV fluids for patient to help with hydration for her lungs. We will have her receive incentive spirometry. We will also offer Robitussin to help with mucolytic therapy. We will offer hydrocodone 5/325 for pain control for pleuritic chest pain as she cannot take anti-inflammatories due to GI bleeding. She was placed on some oral prednisone yesterday for respiratory failure, and we will check blood gases today on patient. We will repeat hemoglobin this afternoon. Otherwise, we will repeat lab work and chest x-ray tomorrow. We will allow patient to be up in the room. To note, patient cannot be on Lovenox for DVT prophylaxis, so she will need to have some compression hose to be on. If the patient would have a recurrence of open bleeding, she would need to have referral to a center that has ability to do endoscopy urgently. GM07/27/2021 08:46:51 MODL: 07/27/2021 09:46:49 /[id number]
[2021-07-27 10:11] LABS: PCO2 ARTERIAL,POC 29 mmHg (35-48)
[2021-07-28] MEDS: Lactated Ringers 1,000 ML IV SCH ×3 (01:04→10:06)
[2021-07-28] MEDS: Levothyroxine 112 MCG Tab PO SCH ×2 (05:47→07:21)
[2021-07-28] MEDS: ALPRAZolam 0.5 MG Tab PO PRN (05:47)
[2021-07-28 08:33] LABS: ANION GAP 9.6 mmol/L (5-15); CHLORIDE,CL 99 mmol/L (98-107); SODIUM,NA 134 mmol/L (136-145)
[2021-07-28] MEDS: Oseltamivir 75 MG Cap PO SCH ×2 (08:33→19:40)
[2021-07-28] MEDS: Citalopram 10 MG Tab PO SCH (08:33)
[2021-07-28] MEDS: Pantoprazole 40 MG Vial IVPUSH SCH (08:35)
[2021-07-28] MEDS: guaiFENesin/Dextromethorphan 100-10 MG/5 ML Soln 10 ML Cup PO PRN ×2 (08:45→19:56)
[2021-07-28] MEDS: predniSONE 20 MG Tab PO SCH (08:45)
--- NOTE | 2021-07-28 10:08 | PN ---
Progress Note for MATT MESSER Date: 07/28/2021 Room #: .215 SUBJECTIVE: The patient is feeling better. She is having soreness on her ribcage area. The patient otherwise still having a productive cough. She still needed oxygen, but she is feeling stronger. OBJECTIVE: Vital Signs: Her temperature is 36.7, pulse 80, blood pressure is 113/59, but was down to 55/50. Her saturations are 92 on 3 L. She did drop down to 86 during the night. Heart: Regular rate. Lungs: Have inspiratory crackles on bases. Abdomen: Soft, minimal epigastric tenderness. Lower Extremities: No edema. LABORATORY DATA: Her labs today come back with her white blood cell count still reduced at 2.4, hemoglobin is stable at 9.0, platelets are 161. Her neutrophils are 51. Her bands are 24, lymphocytes are 20, monocytes are 5. Sodium is 134, potassium is stable at 3.6, creatinine 0.5, GFR greater than 60, glucose 106, calcium is 10.3, AST 16, ALT 14, CRP is 24.2, albumin is 1.9. IMPRESSION: 1. Influenza A. 2. Respiratory failure secondary to influenza. 3. Upper gastrointestinal bleed. 4. Degenerative joint disease. 5. Tobacco use. 6. Alcohol use disorder. PLAN: We will have patient stop her IV fluids right now and saline lock them. We will switch her to oral pantoprazole instead of IV and we will continue DuoNebs on her. She is on oral prednisone of 40 mg daily to help with pulmonary function. The patient is still needing to be hospitalized because of her oxygen requirements. CXR preliminary looks worse, with bilateral infiltrates. GM07/28/2021 09:36:01 MODL: 07/28/2021 10:00:50 /[id number] [place]
[2021-07-28] MEDS: Pantoprazole 40 MG Tab.CR PO SCH (16:43)
--- NOTE | 2021-07-28 18:29 | PCM.SN.2 ---
- Free Text/Narrative Note: due to sputum showin gram pos cocci will start on rocephin due to severity of cxr.
[2021-07-28] MEDS: cefTRIAXone 2 GM Vial IVPUSH SCH (19:40)
[2021-07-29] MEDS: Pantoprazole 40 MG Tab.CR PO SCH ×2 (06:36→16:25)
[2021-07-29] MEDS: Levothyroxine 112 MCG Tab PO SCH (07:56)
[2021-07-29] MEDS: Oseltamivir 75 MG Cap PO SCH ×2 (07:57→19:51)
[2021-07-29] MEDS: cefTRIAXone 2 GM Vial IVPUSH SCH (07:57)
[2021-07-29] MEDS: predniSONE 20 MG Tab PO SCH (07:57)
[2021-07-29] MEDS: Citalopram 10 MG Tab PO SCH (07:57)
[2021-07-29 08:34] LABS: CHLORIDE,CL 99 mmol/L (98-107); SODIUM,NA 134 mmol/L (136-145)
[2021-07-29 08:37] LABS: ANION GAP 9.3 mmol/L (5-15)
[2021-07-29] MEDS ORDERED: Potassium Chloride 10 MEQ Tab.ER PO ONE (10:18)
--- NOTE | 2021-07-29 10:52 | PN ---
Progress Note for MATT MESSER Date: 07/29/2021 Room #: .215 SUBJECTIVE: The patient is feeling more sad today as it is Hannah and she is in the hospital. Her . Otherwise, she is hungry. She is still requiring some oxygen. She has not had as much stomach upset. It is noted that her potassium did drop slightly. Yesterday, we did obtain a sputum sample and there were gram-positive cocci, so did start the patient on Rocephin. OBJECTIVE: Vital Signs: Her blood pressure is 108/60, respiratory rate 16, sats were 97% on 1.5 L. Skin: She appears more stable, alert. Heart: Regular rate and rhythm. Lungs: Have inspiratory crackles at bases. Abdomen: Soft. LABORATORY WORK: Today shows her hemoglobin dropped just slightly at 8.6, white blood cell count improved to 4.7, platelets 214 with 40 segs, 27 bands, 22 lymphs. Sodium is 134, potassium has dropped to 3.3, creatinine 0.5, GFR greater than 60, albumin yesterday was 1.9. IMPRESSION: 1. Acute influenza A. 2. Possible bacterial pneumonitis. 3. Acute gastrointestinal bleed. 4. Chronic obstructive pulmonary disease. 5. Depression. 6. Tobacco use. PLAN: The patient is already on citalopram, which was present when the patient was admitted, so we could increase the doses. That will allow her diet to advance. We will give her a one time potassium pill. I think her potassium is more so reflecting her diet being clear liquids if she is not on a diuretic. Hopefully, anticipate possibly being discharged home once she is able to be off oxygen, but then also if her pneumonia is better as well. GM07/29/2021 10:18:15 MODL: 07/29/2021 10:48:01 /[id number]
[2021-07-29] MEDS: guaiFENesin/Dextromethorphan 100-10 MG/5 ML Soln 10 ML Cup PO PRN (19:51)
[2021-07-29] MEDS: ALPRAZolam 0.5 MG Tab PO PRN (19:51)
[2021-07-30] MEDS: Pantoprazole 40 MG Tab.CR PO SCH ×2 (06:21→16:47)
[2021-07-30] MEDS: Levothyroxine 112 MCG Tab PO SCH ×2 (06:21→12:59)
[2021-07-30] MEDS: guaiFENesin/Dextromethorphan 100-10 MG/5 ML Soln 10 ML Cup PO PRN ×2 (06:26→18:47)
[2021-07-30] MEDS: ALPRAZolam 0.5 MG Tab PO PRN ×2 (06:26→18:47)
[2021-07-30] MEDS: Citalopram 10 MG Tab PO SCH (07:58)
[2021-07-30] MEDS: Oseltamivir 75 MG Cap PO SCH ×2 (07:58→19:00)
[2021-07-30] MEDS: predniSONE 20 MG Tab PO SCH (07:58)
[2021-07-30] MEDS: cefTRIAXone 2 GM Vial IVPUSH SCH (07:58)
[2021-07-30 09:04] LABS: CHLORIDE,CL 99 mmol/L (98-107); SODIUM,NA 135 mmol/L (136-145)
[2021-07-30 09:22] LABS: ANION GAP 9.8 mmol/L (5-15)
--- NOTE | 2021-07-30 09:43 | PN ---
Progress Note for MATT MESSER Date: 07/30/2021 Room #: VM.215 SUBJECTIVE: The patient is feeling better. She is still having a productive cough. She has been able to be weaned down to a lower amount of oxygen but is still requiring some. She does not care for the bed that is here. Does not sleep well. OBJECTIVE: Vital Signs: Her temperature is 36.4, pulse 81, blood pressure is 124/71, her respiratory rate is 18, and saturations are 92% on 1 L, she will drop down to 88% without oxygen. Lungs: Her lungs have inspiratory crackles bilaterally. Heart: Regular rate. Abdomen: Soft. Psychiatric: Her mood is a little bit brighter but then does get quite sad when I talk about needing to stay. DATA: Her lab is pending yet today. IMPRESSION: 1. Influenza A. 2. Bacterial pneumonia, gram-positive from sputum. 3. Exacerbation of chronic obstructive pulmonary disease. 4. Hypoxemia. 5. Depression. PLAN: We are awaiting results of her lab work today as well as chest x-ray today. I feel patient most likely would do better if she would stay until tomorrow, but if she ultimately demands to leave today, we will have to probably send home without oxygen as we would not be able to arrange it today. GM07/30/2021 08:38:04 MODL: 07/30/2021 09:26:29 /[id number]
[2021-07-30] MEDS: Potassium Chloride 20 MEQ Tab.ER PO SCH ×2 (11:03→19:00)
--- NOTE | 2021-07-30 12:53 | CR ---
[id number] RAD/RAD Chest PA And Lateral EXAM: RAD Chest PA And Lateral CLINICAL DATA: PNEUMONIA FOLLOW-UP COMPARISON: CORRELATION IS MADE WITH JULY 28, 2021 FINDINGS: A bilateral interstitial pattern is present but decreased slightly. The chest otherwise is stable IMPRESSION: SLIGHT IMPROVEMENT SINCE LAST EXAM Sajan Almanzar MD 07/30/21 0196 Thank you for allowing us to participate in the care of your patient.
[2021-07-30] MEDS ORDERED: Potassium Chloride 20 MEQ Tab.ER PO SCH (20:00)
[2021-07-31] MEDS: Pantoprazole 40 MG Tab.CR PO SCH (06:37)
[2021-07-31] MEDS: ALPRAZolam 0.5 MG Tab PO PRN (06:41)
[2021-07-31] MEDS: guaiFENesin/Dextromethorphan 100-10 MG/5 ML Soln 10 ML Cup PO PRN (06:41)
[2021-07-31] MEDS ORDERED: Levothyroxine 112 MCG Tab PO SCH (07:00)
[2021-07-31 07:23] LABS: CHLORIDE,CL 100 mmol/L (98-107); SODIUM,NA 135 mmol/L (136-145)
[2021-07-31 07:28] LABS: ANION GAP 10.1 mmol/L (5-15)
[2021-07-31 09:39] VITALS: BP 131/61; PULSE 84
[2021-07-31] MEDS ORDERED: Tiotropium Bromide 4 GM Inhalation Spray (2.5mcg/1 dose; 10 doses) INH SCH (10:00)
--- NOTE | 2021-07-31 10:31 | PN ---
Progress Note for MATT MESSER Date: 07/31/2021 Room #: .215 SUBJECTIVE: The patient is feeling much better. She is very eager to be discharged home. The bed she is sleeping in is causing her a lot of back pain. She is not having as much chest wall soreness. OBJECTIVE: Vital Signs: The patient has been weaned off oxygen. She is 92% on room air. Her pulse is 84. Her blood pressure is 131/61, respiratory rate is 22. Lungs: Very diminished breath sounds on bases. Heart: Regular rate and rhythm. Abdomen: Soft. Psychiatric: Her mood is much better. LABORATORY DATA: Her sputum culture came back showing normal kita. Her hemoglobin is up to 9.6, white blood cell count 7.1 with platelets 447, 59 segs, 23 lymphs. Her sodium is 135, potassium is up to 3.1, her creatinine is 0.5, GFR is greater than 60, blood sugar is 92, magnesium is 1.8. IMPRESSION: 1. Influenza pneumonitis. 2. Respiratory failure secondary to pneumonitis. 3. Hypokalemia. 4. Chronic obstructive pulmonary disease, with exacerbation. 5. Chronic depression. 6. Hypokalemia PLAN: We will make arrangements for patient to be discharged home today. She will finish her last dose of Tamiflu here. We will wean down her prednisone to 20 mg daily. We will switch her to Spiriva inhaler as well as she does have albuterol inhalers and she does have a Breo inhaler at home, I am not certain if she has been using that recently. We will have her see me in a weeks' time for followup. She is to not return to work until she is seen in the clinic. GM07/31/2021 10:05:08 MODL: 07/31/2021 10:16:36 /[id number] [place]
[2021-07-31] MEDS: Potassium Chloride 20 MEQ Tab.ER PO SCH (10:41)
[2021-07-31] MEDS: Oseltamivir 75 MG Cap PO SCH (10:41)
[2021-07-31] MEDS: Citalopram 10 MG Tab PO SCH (10:42)
[2021-07-31] MEDS: predniSONE 20 MG Tab PO SCH (10:42)
[2021-07-31] MEDS: Albuterol HFA 18 Gm Inhaler INH SCH ×2 (10:44→10:49)
--- NOTE | 2021-07-31 11:47 | DISCH ---
PRIMARY DIAGNOSES: 1. Influenza A pneumonitis. 2. Respiratory failure secondary to influenza A pneumonitis. 3. Chronic obstructive pulmonary disease with acute exacerbation. 4. Hypokalemia. 5. Acute upper gastrointestinal bleed. 6. Anemia secondary to gastrointestinal bleed. 7. Depression. 8. Pleuritic chest pain. SUMMARY OF ADMIT HISTORY AND PHYSICAL: The patient is a 65-year-old female who was found at home on her couch, who was very obtunded and lethargic. Her O2 saturations were down in the 80s. She had not been eating much. She was dizzy. She passed out. She had some black tarry stools prior to coming in. The patient had been taking a large amount of nonsteroidals but had stopped a little bit ago. She is a smoker. She is having problems with depression since her had . Her temperature was 36.7 on admit, pulse 101, respirations 18, and saturations were on 2 L. Her white blood cell count on admission was 8.2, hemoglobin was 10.9. Last previous clinic hemoglobin was about 13 two weeks ago. Sodium is 133, potassium 3.9, creatinine 0.9, and GFR greater than 60. LFTs were normal. Troponin was negative. CRP 25.2, lipase 37. Alcohol less than 3. Positive for influenza A and negative for COVID as well as RSV. D-dimer 0.75. Lactic acid 1.5. Ammonia less than 17. SUMMARY OF HOSPITAL COURSE: To note, the patient was hospitalized from 07/26/2021 to 07/31/2021. She was given Tamiflu. She was placed on oxygen as well as given DuoNebs. The patient did have a CT scan of her chest to rule out PE and that was negative for that. To note, patient throughout her hospitalization did require oxygen. We did place her on oral prednisone. She received IV Protonix to help stop GI bleeding. Sputum culture initially showed some gram-positive cocci, but it did grow out to be normal ikta, so she was covered with Rocephin for few days until final culture became available. Her laboratory data showed that her blood cultures were negative. Her white blood cell count had actually dropped down to 2.4, felt to be a stress reaction; that was up to 7.1 on date of discharge. Her hemoglobin had dropped down to 8.6, some was felt to be dilutional and then it did go up to 9.6 by day of discharge. She did not need blood transfusions. Her platelet count sheri from 161 up to 447 at the time of discharge. The patient did have quite a few immature cells that were present on her Gram stain. She had had 40% neutrophils, 27 bands, and 27 lymphocytes on 07/29/2021. Her sodium had been just slightly low at 133 on admit, went up to 135. Her potassium had dropped down to 2.8 by 07/30/2021, was up to 3.1 on 07/31/2021. Her creatinine stayed normal. Her ferritin was 413. TIBC and percent saturation were pending. Liver tests stayed normal. Her CRP had improved to 24.2. Her chest x-rays were followed, and they did show slight improvement. She did have much hyperaeration. The patient was able to be weaned off oxygen by 07/31/2021. She was having problems with pleuritic chest pain and did receive some hydrocodone. MEDICATIONS AT DISCHARGE: Tylenol 650 q.4 hours p.r.n., albuterol 2 puffs 4 times a day, citalopram 20 mg daily (that was a dose increase), Robitussin DM cough syrup q.4 hours p.r.n., and levothyroxine 112 mcg daily. She finished a 5- day course of Tamiflu 75 mg b.i.d., Protonix new 40 mg b.i.d., potassium chloride 20 mEq b.i.d., prednisone 20 mg daily, and Spiriva inhaler 1 puff daily. The patient had been on a Breo inhaler 200/25 one puff daily at home, which she is to resume. She is also on a multivitamin 1 pill daily, calcium 600 mg daily, folic acid 0.4 mg daily, vitamin B complex 1 pill daily, vitamin C 1000 mg daily, Naprosyn should be held, Claritin 10 mg daily, metoprolol-XL 25 mg 1 pill daily, Premarin vaginal cream p.r.n., aspirin 81 mg daily, Pataday 0.2% 1 drop daily, betamethasone cream or gel twice a day, Bactroban p.r.n., triamcinolone p.r.n., epinephrine autoinjector, and prior steroid creams as directed. PLAN: The patient is to follow up to see me in a week's time for recheck. At that time, she will need to have CBC, BMP done as well as a CRP. She will need to have a followup chest x-ray.She was told to stop smoking. The patient is full level code at the time of discharge. Over 30 minutes was spent doing her discharge. GM07/31/2021 10:12:09 MODL: 07/31/2021 11:35:32 /[id number] MTDD
--- NOTE | 2021-07-31 13:31 | CR ---
[id number] RAD/RAD Chest PA or AP 1V EXAM: SINGLE VIEW CHEST. INDICATION: PNEUMONIA COMPARISON: CORRELATION IS MADE WITH JULY 26, 2021 FINDINGS: Bilateral pneumonia has significantly increased The cardiac silhouette is stable IMPRESSION: SIGNIFICANT WORSENING Sajan Almanzar MD 07/31/21 [id number] Thank you for allowing us to participate in the care of your patient.
[2021-08-01] MEDS ORDERED: predniSONE 20 MG Tab PO SCH (08:00)
== END 2021-07-31 13:30 | disposition home or self-care (01) | DRG 193 ==
LOC: VM.ED 15:33 → VM.MS 19:13
PROVIDERS: ADMIT Family Medicine; ATTEND Family Medicine
DX: J10.08 Influenza due to other identified influenza virus with other specified pneumonia (principal); J96.01 Acute respiratory failure with hypoxia; K92.1 Melena; J44.1 Chronic obstructive pulmonary disease with (acute) exacerbation; J44.0 Chronic obstructive pulmonary disease with (acute) lower respiratory infection; J15.9 Unspecified bacterial pneumonia; E87.6 Hypokalemia; D64.9 Anemia, unspecified; F32.A Depression, unspecified; R07.81 Pleurodynia; E03.9 Hypothyroidism, unspecified; I10 Essential (primary) hypertension; F17.210 Nicotine dependence, cigarettes, uncomplicated; F41.9 Anxiety disorder, unspecified; G25.81 Restless legs syndrome; Z20.822 Contact with and (suspected) exposure to COVID-19; F10.20 Alcohol dependence, uncomplicated; E78.5 Hyperlipidemia, unspecified; K21.9 Gastro-esophageal reflux disease without esophagitis; Z98.890 Other specified postprocedural states; Z79.899 Other long term (current) drug therapy; Z98.51 Tubal ligation status
CPT/HCPCS: 0241U; 36415; 36600; 71045; 71046; 71275; 80048; 80053; 80307; 82140; 82728; 82803; 83540; 83550; 83605; 83690; 83735; 84484; 85008; 85014; 85018; 85025; 85046; 85379; 86140; 86850; 86900; 86901; 87070; 87205; 93005; 94760; 96374; 96375; 99285-25; A9270-GY; C9113; J0696; J2405; J7030; J7120; J7512; J7620-GY; Q9967